=== PATIENT | female | born 2000 | race Caucasian/White ===

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

== ENCOUNTER 2018-04-04 14:14 | Emergency (ER) | payer MEDICAID, OTHER ==
[~2018-04-04] VITALS: Ht 152.4 cm; Wt 85.9 kg
[2018-04-04] MEDS ORDERED: IBUPROFEN 800 MG TABLET PO ONE (16:30)
[2018-04-04] MEDS ORDERED: BACITRACIN 0.9 GM PACKET OINTMENT TP ONE (16:45)
[2018-04-04 17:27] VITALS: BP 108/60
== END 2018-04-04 17:50 | disposition home or self-care (01) ==
LOC: EMS 14:15
DX: S50.01XA Contusion of right elbow, initial encounter (principal); S50.311A Abrasion of right elbow, initial encounter; W18.39XA Other fall on same level, initial encounter; Y93.02 Activity, running; Y92.89 Other specified places as the place of occurrence of the external cause; Y99.8 Other external cause status
CPT/HCPCS: 99284